=== PATIENT | female | born 1960 | race Caucasian/White ===

== ENCOUNTER 2017-07-25 06:13 | Emergency (ER) | payer BC ==
[2017-07-25 06:18] VITALS: TEMP 97.9
[2017-07-25] MEDS ORDERED: MECLIZINE HYDROCHLORIDE 12.5 MG TAB PO ONE (06:29)
[2017-07-25] MEDS ORDERED: MECLIZINE HYDROCHLORIDE 12.5 MG TAB ONE (06:30)
[2017-07-25 08:43] VITALS: BP 126/75; PULSE 67; RESP 16; O2SAT 98
== END 2017-07-25 09:30 | disposition home or self-care (01) ==
LOC: ED 06:13
DX: R42 Dizziness and giddiness (principal)
CPT/HCPCS: 70450; 82962; 99284

== ENCOUNTER 2017-12-16 19:37 | Emergency (ER) | payer BC, OTHER ==
[2017-12-16] MEDS ORDERED: GENTAMICIN 0.3% OPHTH 1 DROP SOL ONE (20:11)
[2017-12-16] MEDS ORDERED: LABETALOL HYDROCHLORIDE 100 MG TAB ONE (20:39)
[2017-12-16] MEDS ORDERED: LABETALOL HYDROCHLORIDE 100 MG TAB PO SCH (20:45)
[2017-12-16 20:48] VITALS: PULSE 69; TEMP 97.6; O2SAT 95
[2017-12-16 20:54] VITALS: BP 140/99
== END 2017-12-16 21:06 | disposition home or self-care (01) | DRG 305 ==
LOC: ED 19:37
DX: I10 Essential (primary) hypertension (principal); H11.89 Other specified disorders of conjunctiva; L53.9 Erythematous condition, unspecified
CPT/HCPCS: 99283; A9270-GY